=== PATIENT | male | born 2000 | race African-American/Black ===

== ENCOUNTER 2019-03-23 20:59 | Emergency (ER) | payer OTHER ==
[2019-03-23 21:40] VITALS: BP 107/35; PULSE 68; TEMP 98.9; BMI 21.8
--- NOTE | 2019-03-23 23:45 | PDOC ---
History of Present Illness - General Chief Complaint: Pain Stated Complaint: ABD PAIN/VOMITING Time Seen by Provider: 03/23/19 23:44 Past History - Past Medical History Allergies/Adverse Reactions: Allergies Allergy/AdvReac Type Severity Reaction Status Date / Time No Known Allergies Allergy Verified 03/23/19 21:40 Home Medications: Ambulatory Orders NK [No Known Home Medication] 03/24/19 COPD: No GI Disorders: Yes (gastritis) - Psycho Social/Smoking Cessation Hx Smoking History: Never smoked *Physical Exam - Vital Signs Last Vital Signs Temp Pulse Resp BP Pulse Ox 98.9 F 68 19 107/35 L 99 03/23/19 21:37 03/23/19 21:37 03/23/19 21:37 03/23/19 21:37 03/23/19 21:37 ED Treatment Course - LABORATORY CBC & Chemistry Diagram: 03/24/19 00:40 03/24/19 00:40 Medical Decision Making - Medical Decision Making 03/24/19 00:03 -EKG -CBC,CMP,Mg,Phos,Lipase -Maalox,Pepcid,Tylenol,IVF,Zofran 03/24/19 01:34 Pain resolved. No vomiting since arrival. Feels ready to go home. PO challenge. D/c home w/GI Discharge - Discharge Information Problems reviewed: Yes Clinical Impression/Diagnosis: Abdominal pain, Vomiting Condition: Improved Disposition: HOME - Admission No - Follow up/Referral Referrals: Shantell Shaw MD [Staff Physician] - - Patient Discharge Instructions Patient Printed Discharge Instructions: DI for Abdominal Pain-Adult Additional Instructions: You have been seen in the Emergency Department for your abdominal pain and vomiting pain. Your EKG and labs show no signs concerning for an emergent condition. The cause of your symptoms is uncertain at this time, so you will need further evaluation. If you experience pain, you can take Tylenol as directed on the medication bottle, but do not exceed 4g of Tylenol a day. Follow-up with your primary care doctor within 1 week. We have also given you a referral for a [facility] Dr Shaw - call him to make an appointment within 1 week for further evaluation and management. Return to the ED immediately if you experience fever, inability to keep down water, severe pain, passing out, or any other new or worsening symptom. - Post Discharge Activity
[2019-03-24] MEDS ORDERED: SODIUM CHLORIDE 0.9% 500 ML INFUS.BAG IV ONE (00:02)
[2019-03-24] MEDS ORDERED: ACETAMINOPHEN 1000 MG/100 ML VIAL (NON FORMULARY) IVPB ONE (00:02)
[2019-03-24] MEDS ORDERED: FAMOTIDINE 20 MG/50 ML IVPB 20 MG/50 ML MG IVPB ONE ×2 (00:02→00:43)
[2019-03-24] MEDS ORDERED: MAG HYDROX/AL HYDROX/SIMETH 30 ML UNIT-DOSE CUP PO ONE (00:02)
[2019-03-24] MEDS ORDERED: ONDANSETRON 4 MG/2 ML VIAL IVPUSH ONE (00:02)
[2019-03-24] MEDS ORDERED: ONDANSETRON 4 MG/2 ML VIAL ONE (00:42)
[2019-03-24] MEDS ORDERED: MAG HYDROX/AL HYDROX/SIMETH 30 ML UNIT-DOSE CUP ONE (00:42)
[2019-03-24] MEDS ORDERED: ACETAMINOPHEN INJECTION 100 ML IVPB ONE (00:42)
--- NOTE | 2019-03-24 00:43 | PDOC ---
Documentation entered by Gabby Walsh SCRIBE, acting as scribe for Ambika Yu DO. Ambika Yu, DO: This documentation has been prepared by the Nico reese Joy, SCRIBE, under my direction and personally reviewed by me in its entirety. I confirm that the documentation accurately reflects all work, treatment, procedures, and medical decision making performed by me. Attending Attestation - Resident Resident Name: Erum Hazel - ED Attending Attestation I have performed the following: I have examined & evaluated the patient, The case was reviewed & discussed with the resident, I agree w/resident's findings & plan, Exceptions are as noted - HPI HPI: 03/24/19 00:05 The patient is a 18 year old male with significant past medical history of ? gastro issues who presents to the ED with abdominal pain, nausea, vomiting, and diarrhea since earlier today. As per patient, he woke up today around 8 AM with abdominal pain and vomiting. Patient states that the pain is constant stabbing pain in the periumbilical region. Patient endorses x4-5 episodes of vomiting ( NBNB) and x4-5 episodes of soft watery diarrhea (NBNB). Patient reports that since July 2018 he started having these symptoms once a month and was diagnosed with gastro issues but never followed up with his GI doctor. No recent travel or sick contact. Denies chest pain, fever, chills, myalgia, or sore throat. Denies any other symtoms. Allergies: NKA - Physicial Exam PE: 03/24/19 00:41 Gen: aaox3, nad heent: MMM Heart: +s1s2 reg lungs: cta b/l abd: soft, nt/nd +bs ext": no c/c/e - Medical Decision Making 03/24/19 00:42 a/p: 18yo male with n/v/d x 1 day -no po challenge taken at home -last vomitus was at 3p today -pt without abd pain -pt is nontoxic in appearance -will send labs, ivf hydraiton, zofran, pepcid -will monitor and reassess 03/24/19 01:30 labs reviewed will give po challenge glu 69 03/24/19 01:43 pt feeling much better ate a turkey sandwich and drank water stable for dc to home discussed follow up with GI Heart Score/ECG Review - ECG Intrepretation Comment:: 03/24/19 00:47 sinus haley at 54, nl axis, nl interval, incomplete rbbb, no acute st/t wave findings
[2019-03-24 00:47] LABS: BASO % 0.6 % (0-2.0); EOS % 0.3 % (0-4.5); HEMOGLOBIN 14.4 GM/dL (11.7-16.9); LYMPH % 42.6 % (8-40); MCHC 32.7 g/dl (32.0-35.9); MEAN CELL VOLUME 85.6 fl (80-96); MEAN PLT VOLUME 7.4 fl (7.5-11.1); MONO % 6.5 % (3.8-10.2); PLATELET COUNT 319 K/MM3 (134-434); RBC 5.14 M/mm3 (4.00-5.60); RDW 13.6 % (11.9-15.9); WHITE BLOOD COUNT 6.1 K/mm3 (4.0-10.0)
[2019-03-24 01:19] LABS: BILIRUBIN,TOTAL 1.9 mg/dL (0.2-1); BLOOD UREA NITROGEN 10.3 mg/dL (7-18); CREATININE 0.9 mg/dL (0.55-1.3); MAGNESIUM 2.1 mg/dL (1.8-2.4); PHOSPHOROUS 4.2 mg/dL (2.5-4.9); POTASSIUM 4.3 mmol/L (3.5-5.1); TOT PROT 7.9 g/dl (6.4-8.2)
--- NOTE | 2019-03-24 13:21 | EKG ---
Test Reason : Blood Pressure : / mmHG Vent. Rate : 054 BPM Atrial Rate : 054 BPM P-R Int : 186 ms QRS Dur : 098 ms QT Int : 398 ms P-R-T Axes : 066 094 070 degrees QTc Int : 377 ms SINUS BRADYCARDIA WITH SINUS ARRHYTHMIA POSSIBLE LEFT ATRIAL ENLARGEMENT RIGHTWARD AXIS INCOMPLETE RIGHT BUNDLE BRANCH BLOCK NONSPECIFIC ST ABNORMALITY ABNORMAL ECG NO PREVIOUS ECGS AVAILABLE Confirmed by NADINE VIEIRA MD ([id number]) on 03/24/2019 1:20:54 PM Referred By: Confirmed By:NADINE VIEIRA MD
== END 2019-03-24 02:08 | disposition home or self-care (01) ==
LOC: JER 20:59
PROC: 3E0337Z Introduction of Electrolytic and Water Balance Substance into Peripheral Vein, Percutaneous Approach (ICD-10-PCS; principal; 2019-03-23)
PROC: 3E033NZ Introduction of Analgesics, Hypnotics, Sedatives into Peripheral Vein, Percutaneous Approach (ICD-10-PCS; 2019-03-23)
PROC: 3E033GC Introduction of Other Therapeutic Substance into Peripheral Vein, Percutaneous Approach (ICD-10-PCS; 2019-03-23)
DX: R10.84 Generalized abdominal pain (principal); Z87.19 Personal history of other diseases of the digestive system
CPT/HCPCS: 36415; 80053; 83690; 83735; 84100; 85025; 93005; 93010; 99283-25; J0131